=== PATIENT | male | born 2000 | race Hispanic/Latino ===

== ENCOUNTER 2020-10-23 17:02 | Emergency (ER) | payer SELFPAY ==
[2020-10-23] VITALS (11 sets, daily range): BP systolic 115–132; BP diastolic 61–72; PULSE 66–102; RESP 16–28; TEMP 36.4; O2SAT 94–100
--- NOTE | 2020-10-23 17:23 | ED.GENADULT ---
HPI - General Adult General Chief complaint: Overdose Stated complaint: MEDICATION INGESTION/SI Source: patient Mode of arrival: EMS Limitations: no limitations History of Present Illness HPI narrative: Patient is a 20-year-old male who presents for EMS status post attempting to harm himself by swallowing gabapentin pills patient was in an argument with his mother patient states that his mother removed the pills from his mouth and that he did not swallow any. Patient on arrival denies any symptoms or complaints. Patient notes that his parents are getting and his mother was projecting on him. Patient denies any history of self-harm but does note history of depression that has been untreated. Patient does not have a therapist or primary care doctor. Patient lives at home with his mother Related Data Home Medications Medication Instructions Recorded Confirmed No Home Medications 10/23/20 10/23/20 Allergies Allergy/AdvReac Type Severity Reaction Status Date / Time No Known Allergies Allergy Verified 10/23/20 17:18 Review of Systems Review of Systems: All systems reviewed & are unremarkable except as noted in HPI and below PMFSH Past Medical History Medical History Depression Surgical History Surgical History H/O colonoscopy Social History Social History Smoking status: Never smoker Gender identity (if verbalized by the patient): Male Exam Narrative: Exam Narrative: GENERAL: Well-appearing, well-nourished, and in no acute distress. HEAD: Normocephalic, atraumatic. EYES: PERRLA and EOMI. ENT: Nares clear, no rhinorrhea or epistaxis. Mucous membranes moist. NECK: Supple. No adenopathy or masses. CHEST: Clear to auscultation. No respiratory distress. No wheezes rales or rhonchi HEART: Regular rate and rhythm. No murmur heard. Normal peripheral pulses. ABDOMEN: Soft, nontender, nondistended EXTREMITIES: Normal range of motion. No edema. SKIN: Warm, dry, no rash. NEURO: No focal deficits. Alert and oriented x3. Cranial nerves II through XII grossly intact PSYCH: Normal mood and affect. Course Course Emergency Course: Patient evaluated in the emergency department by crisis and myself will be discharged home felt appropriate for a safety plan will stay with his sister patient will also follow-up with the provided resources by crisis patient in the room in no distress has remained stable in the ER and has been pleasant with no issues Vital Signs Vital signs: Vital Signs Temperature 97.6 F 10/23/20 17:11 Respiratory Rate 18 10/23/20 17:11 Temperature 97.6 F 10/23/20 17:11 Pulse Rate 66 10/23/20 21:37 Respiratory Rate 21 H 10/23/20 21:37 Blood Pressure 115/63 10/23/20 21:37 Pulse Oximetry 100 10/23/20 21:37 Medical Decision Making MDM Narrative Medical decision making narrative: Patient came in for evaluation after argument with his mother and attempting to take some pills in an attempt to harm himself as he was upset patient in the ER has had no issues resting comfortably was evaluated by crisis will be discharged home with safety plan patient agrees with this and feels comfortable with this Vital Signs Vital Signs: Vital Signs Temperature 97.6 F 10/23/20 17:11 Respiratory Rate 18 10/23/20 17:11 Temperature 97.6 F 10/23/20 17:11 Pulse Rate 66 10/23/20 21:37 Respiratory Rate 21 H 10/23/20 21:37 Blood Pressure 115/63 10/23/20 21:37 Pulse Oximetry 100 10/23/20 21:37 Lab Data Result diagrams: 10/23/20 17:25 10/23/20 17:25 Labs: Lab Results 10/23/20 10/23/20 10/23/20 Range/Units 17:25 17:25 17:25 WBC 6.9 (4.5-10.0) K/mm3 RBC 5.39 (4.6-6.20) M/mm3 Hgb 15.5 (14.0-18.0) g/dL Hct 45.8 (42.0-52.0) % MCV 85.0
[2020-10-23 17:31] LABS: Basophils Percent Auto 0.6 % (0.2-1.2); Eosinophils Absolute Auto 0.2 K/mm3 (0-0.3); Hematocrit 45.8 % (42.0-52.0); Hemoglobin 15.5 g/dL (14.0-18.0); Immature Granulocyte Absolute 0.04 K/mm3 (0.00-0.031); Immature Granulocyte Percent A 0.6 % (0-0.5); Lymphocytes Absolute Auto 1.67 K/mm3 (0.9-3.2); Lymphocytes Percent Auto 24.2 % (18.3-44.2); Mean Corpuscular HGB Conc 33.8 g/dl (32-36); Mean Corpuscular Hemoglobin 28.8 pg (26-34); Mean Platelet Volume 10.7 fl (7.4-10.4); Monocytes Absolute Auto 0.6 K/mm3 (0.1-0.6); Monocytes Percent Auto 8.3 % (2.6-8.5); Neutrophils Absolute Auto 4.4 K/mm3 (1.3-6.7); Neutrophils Percent Auto 63.3 % (45.5-73.1); Platelet Count Result 268 k/mm3 (150-375); Red Blood Count 5.39 M/mm3 (4.6-6.20); Red Cell Distribution Width 12.5 % (11.5-14.5); White Blood Count 6.9 K/mm3 (4.5-10.0)
[2020-10-23 17:44] LABS: Acetaminophen < 10 ug/mL (10-30); Ethanol < 10 mg/dL (<10); Magnesium 1.7 mg/dL (1.6-2.3); Phosphorus 3.7 mg/dL (2.5-4.5)
[2020-10-23 17:45] LABS: Alanine Aminotransferase 35 U/L (4-50); Albumin Level 4.4 g/dL (3.5-5.1); Alkaline Phosphatase 65 U/L (38-126); Anion Gap 8 mmol/L (8-16); Aspartate Amino Transferase 33 U/L (17-59); Bilirubin,Total 0.6 mg/dL (0.2-1.3); Blood Urea Nitrogen 17 mg/dL (9-20); Calcium 9.3 mg/dL (8.4-10.2); Carbon Dioxide 25 mmol/L (22-30); Chloride 106 mmol/L (98-107); Estimated CRCL calculation 121 ml/min; Estimated Glomerular Filt Rate > 60; Glucose 113 mg/dL (75-110); Potassium 4.2 mmol/L (3.4-5.0); Sodium 139 mmol/L (137-145)
--- NOTE | 2020-10-23 18:00 | PC.NURSE ---
Poison control contacted at this time for recommendation on treatment. Per rep the amount pt reports possibly ingesting is far below the toxic amount. Per rep the peak is 2 hours but could possibly last for 5hours and include drowsiness/n/v. Rep states that they recommend monitoring pt for 5 hours and adding an aspirin level to the toxicology report.
--- NOTE | 2020-10-23 18:13 | PC.NURSE ---
KAPIL Travis informed of reccomendation from poison control.
[2020-10-23 18:21] LABS: Add Urine Microscopic? YES; Appearance Urine Clear (Clear); Bacteria Urine Trace /hpf; Bilirubin Urine Negative (Negative); Blood Urine Negative (Negative); Color Urine Yellow (Yellow); Glucose Urine UA Negative (Negative); Ketones Urine Negative (Negative); Leukocyte Esterase Ur Negative LEU/UL (Negative); Mucus Urine Rare /lpf; Nitrate Urine Negative (Negative); Protein Urine 1+ mg/dL (Negative); RBC Urine 0-2 /hpf (0-2); Specific Grav Ur 1.028 (1.001-1.035); Urobilinogen Urine Negative mg/dL (<2.0); WBC Urine 0-3 /hpf
[2020-10-23 18:23] LABS: Amphetamine Screen Urine Negative (Negative); Barbiturate Screen Urine Negative (Negative); Benzodiazepines Screen Urine Negative (Negative); Cannabinoid Screen Urine Negative (Negative); Cocaine Screen Urine Negative (Negative); Methadone Screen Urine Negative (Negative); Opiate Screen Urine Negative (Negative); Phencyclidine Screen Urine Negative (Negative)
[2020-10-23 18:30] LABS: Salicylate < 1.0 mg/dL (2-20)
--- NOTE | 2020-10-23 19:14 | PC.NURSE ---
Pt report given to GISELLA page he has assumed pt care.
--- NOTE | 2020-10-23 21:47 | PC.NURSE ---
converse with poison control , case closed @ this time
--- NOTE | 2020-10-23 22:00 | PC.NURSE ---
per glendy mcdowell pt is medically clear and it is ok to call crisis.
--- NOTE | 2020-10-23 22:08 | PC.NURSE ---
Anette @ Crisis @ [phone] told me to contact [facility]. call back if they deny.
--- NOTE | 2020-10-23 22:09 | PC.NURSE ---
Jesusita @ [facility] @ [phone] - no active medicaid coverage so the patient does not qualify for our services at this time.
--- NOTE | 2020-10-23 22:10 | PC.NURSE ---
Anette @ [facility] will send a worker out [place]. @ [phone].
== END 2020-10-23 23:48 | disposition home or self-care (01) ==
PROVIDERS: Emergency Medicine Emergency Medical Services; Emergency Provider Emergency Medicine; PCP Emergency Medicine
DX: F32.9 Major depressive disorder, single episode, unspecified (principal)
CPT/HCPCS: 36415; 80053; 80307; 81001; 83735; 84100; 84443; 85025; 99284